=== PATIENT | male | born 1935 ===

== ENCOUNTER 2017-01-01 04:30 | Emergency (ER) | payer MEDICARE, MEDICAID ==
--- NOTE | 2017-01-05 20:07 | ER ---
ADMIT: 01/01/2017 RM/LOC: ER [facility] MR#: [id number] [facility] [address] [place] [address] Emergency Room Report SEX: M AGE: 81 : 1935 DATE: 01/01/2017 The patient is an 81-year-old, demented male, with prior history of coronary artery disease and GERD. States he has had left chest discomfort with shortness of breath for the past 48 hours, transported ALS by [facility] with aspirin, nitroglycerin en route with no improvement. The patient did have 1 nitroglycerin prior to transport also, with no improvement. EKG en route showed left bundle-branch block. Exam remarkable for nontoxic, afebrile male, anxious and demented. EKG again showed left bundle-branch block, unchanged from EKG from [facility] 3 years ago. Normal troponin, lipase, lactic acid, WBC. Slightly elevated D-dimer at 0.86. Normal BNP. Chest x- ray, unremarkable. CTA chest showed no evidence of PE, bibasilar atelectasis noted. The patient was given Zofran, Toradol, Protonix, GI cocktail with improvement of pain. Discharged back to [facility] with same medications, which included proton pump inhibitor by med sheet. Royer Gonzalez MD/ modl JOB #: [id number] CC: Royer Gonzalez MD, Attending Physician . [facility], Family Physician . [facility]
--- NOTE | 2017-01-06 19:47 | ER ---
ADMIT: 01/01/2017 RM/LOC: ER [facility] MR#: [id number] [address] [address] [place] [address] Emergency Room Report SEX: M AGE: 81 : 1935 DATE: 01/01/2017 DIAGNOSIS: Atypical chest pain. Royer Gonzalez MD/ shashi JOB #: [id number] CC: Royer Gonzalez MD, Attending Physician [facility] Physician, Family Physician
== END 2017-01-01 06:55 | disposition home or self-care (01) ==
LOC: ER 04:30
DX: R07.89 Other chest pain (principal); E11.9 Type 2 diabetes mellitus without complications; I10 Essential (primary) hypertension; E78.5 Hyperlipidemia, unspecified; K21.9 Gastro-esophageal reflux disease without esophagitis; Z88.0 Allergy status to penicillin; E03.9 Hypothyroidism, unspecified